=== PATIENT | female | born 1935 | race Caucasian/White ===

== ENCOUNTER 2016-10-01 05:12 | Inpatient (IN) | payer MEDICARE, BC ==
--- NOTE | ~2016-10-01 | PREOPHP ---
PreOp History and Physical [facility] [address] [place]. [address] NAME: LEEANN DILL : 37 STATUS : ADM IN PAT#: [id number] AGE: 81 ADM/REG DATE : 10/01/16 MR#: [id number] REPORT SERV DATE: 10/01/16 DICTATED BY: SHENG BARBER DATE: 10/01/16 REPORT STATUS : Draft TRANSCRIBED BY: MODL DATE: 10/01/16 CHIEF COMPLAINT: Back pain, leg pain, right greater than left. HISTORY OF PRESENT ILLNESS: This is an 81-year-old female whom I have taken care for the last 2 years. She has had a grade 1 spondylolisthesis at L3-4 and L4-5 as documented by x- ray. She has some instability at both levels, again as documented by dynamic flexion and extension x-rays. She has an MRI showing particularly significant foraminal stenosis on the right at L4-5, lesser amounts at L3-4 but nevertheless does have gross instability at L3-4 and some stenosis at L3-4. She is still very active, lives alone, still doing all of her own housekeeping, etc. She has failed all forms of conservative care and now brought to surgery for a right-sided L3-4, L4-5 hemilaminectomy, foraminotomy, facetectomy, transforaminal diskectomy, anterior interbody cage insertion, posterior lateral interbody fusion with local bone graft allograft. We will also use extra-small dosage of bone protein. Posterior percutaneous segmental instrumentation will complete the surgery. The patient has had a previous left-sided decompression, which should be noted. After identifying the patient in the preop holding area, all questions were answered. The patient voiced understanding of the risks, willingness to accept those, and requested to proceed. Please note, because of the complexity of surgery and the need to identify correct level of surgery intraoperatively as well as desire to carry out the safest most precise dissection, we feel an intraoperative navigation is mandatory. PAST MEDICAL HISTORY: Included a previous uterine and kidney cancer, both which have been treated and has been cured. She has hypertension, hypercholesterolemia. She has had a TIA and has some mild degree of osteoporosis as well as some chronic migraine cephalgia. PAST SURGICAL HISTORY: Carpal tunnel release, cholecystectomy, abdominal hysterectomy, L3-4, L4-5 hemilaminotomy with microdiskectomy, and left total hip arthroplasty. CURRENT MEDICATIONS: Atorvastatin, azelastine, benazepril, clobetasol, econazole, Neurontin, [place], pantoprazole, Symbicort, spironolactone. ALLERGIES: PENICILLIN. SOCIAL HISTORY: She is , lives alone. Smokes a few cigarettes per week, does not use any alcohol. FAMILY HISTORY: Her father had coronary artery disease. Her brother had coronary artery disease. Her mother of diabetes. REVIEW OF SYSTEMS: She denies chest pain, pressure, or shortness of breath. She ambulates independently. PHYSICAL EXAMINATION: VITAL SIGNS: 5 feet 3 inches, 195 pounds, BMI is 34.5. PreOp History and Physical [address] [address] NAME: LEEANN DILL : 36 STATUS : ADM IN [facility]#: [id number] AGE: 81 ADM/REG DATE : 10/01/16 MR#: [id number] REPORT SERV DATE: 10/01/16 DICTATED BY: SHENG BARBER DATE: 10/01/16 REPORT STATUS : Draft TRANSCRIBED BY: NABIL DATE: 10/01/16 GENERAL: She is alert, cooperative, well oriented. She ambulates independently. The truck is slightly flexed forward. HEENT: Exam is grossly normal. LUNGS: Clear to auscultation. HEART: Rate is regular and rhythmic. ABDOMEN: Soft with good bowel sounds. No peritoneal signs are noted. MUSCULOSKELETAL: Spine does have previous mild incision which is healed. There is no paraspinous muscle tenderness or spasm. There are no abnormal pain behaviors. Lisa signs are negative. Fabere signs are negative. Straight leg raising signs are negative. Femoral nerve stretch tests are negative. Motor strength is 5/5 in both lower extremities. Patella and Achilles reflex completely absent. No dermatomal sensory deficit found in either lower extremity. Toes are downgoing. No ankle clonus is found. No evidence of myelopathy noted. Orthopedically, she has no pain with movement of hips, knees, or ankles. There are some pulses in all four extremities. No abnormal skin lesions found. ASSESSMENT AND RECOMMENDATIONS: As listed above. MARIAH/NABIL Sheng Barber D.O. / [id number] CC: Eagle Ferguson M.D.
--- NOTE | ~2016-10-01 | OP ---
Record Of Operation [facility] [address] [place]. [address] NAME: LEEANN DILL : 37 STATUS : ADM IN PAT#: [id number] AGE: 81 ADM/REG DATE : 10/01/16 MR#: [id number] REPORT SERV DATE: 10/01/16 DICTATED BY: SHENG BARBER DATE: 10/01/16 REPORT STATUS : Draft TRANSCRIBED BY: MODL DATE: 10/01/16 DATE OF PROCEDURE: PREOPERATIVE DIAGNOSES: 1. Grade 1 spondylolisthesis, L3-4, L4-5. 2. Foraminal stenosis, L3-4, L4-5. 3. Herniated nucleus pulposus, right L4-5. POSTOPERATIVE DIAGNOSES: 1. Grade 1 spondylolisthesis, L3-4, L4-5. 2. Foraminal stenosis, L3-4, L4-5. 3. Herniated nucleus pulposus, right L4-5. PROCEDURE: Microscopic and navigation-assisted right L3-4, L4-5 hemilaminectomy, foraminotomy, facetectomy, transforaminal diskectomy, anterior interbody Capstone cage insertion, posterolateral interbody fusion with local bone graft and allograft. Posterior percutaneous closure instrumentation, L3 to L5. SURGEON: Sheng Barber D.O. CYBER POLICY AND [employer]ATEGY PLANNER: Davion Hutton. ANESTHESIA: General. ESTIMATED BLOOD LOSS: 100 mL. INDICATIONS FOR SURGERY: indications for surgery and risks have been explained. They are listed in the last office note as well as history and physical, see that for details. DESCRIPTION OF PROCEDURE: Antibiotic prophylaxis was given. Neurophysiology monitoring leads were inserted. The patient was brought to the operative suite. General anesthetic including endotracheal intubation was administered. A Nichols catheter was placed with a sterile technique. The patient was placed prone on a Patrick spine frame. Bony prominences were carefully padded. Thoracolumbar spine was scrubbed with Hibiclens solution. DuraPrep was painted. Sterile drapes were applied. A small stab wound was carried out over the left posterior-superior iliac spine. A percutaneous pin with navigational frame attached was inserted in PSIS. Intraoperative CT scan with O-arm was obtained. CT information was used to register the navigational system. With navigational assistance, I identified the L3-4, L4-5. Just lateral to the facet joint, a 5 cm skin incision was carried out. Initially, I used the inferior portion of the skin incision. I placed a blunt navigated probe through the fascia and muscle and docked over the L4-5 facet joint. Muscle dilator was inserted, followed by placement of a tubular retractor attached to an arm mount on the table. The microscope was sterilely draped and used throughout the remainder of the procedure. Record Of Operation [facility] [address] [place]. [address] NAME: LEEANN DILL : 37 STATUS : ADM IN PAT#: [id number] AGE: 81 ADM/REG DATE : 10/01/16 MR#: [id number] REPORT SERV DATE: 10/01/16 DICTATED BY: SHENG BARBER DATE: 10/01/16 REPORT STATUS : Draft TRANSCRIBED BY: NABIL DATE: 10/01/16 With navigational assistance, I identified the top of the pedicle of L5, the inferior pedicle of L4. I used a combination of a cutting bur, mehnaz burs, and 2 and 3 mm Kerrison rongeurs. I dissected from [id number], removing the entire superior articular process of L5 down to the top of the pedicle. I removed the pars interarticularis, the remaining lamina, and the inferior articular process of L4 that remained. I saw a large disk herniation in the paracentral and extending into the medial foramen, there was also ligamentum flavum hypertrophy, and some facet hypertrophy that was contributing to foraminal stenosis as well. I then carried out a transforaminal diskectomy with curettes, rongeurs, and disk morris. Intradiscal trial was carried out. The wound was irrigated. I then packed the interbody space with local bone graft and allograft. I used an extra-small dosage of bone protein. The cage was then inserted through the midportion of the interbody graft and against the anterior longitudinal ligament in the midline. Additional posterolateral interbody fusion was carried out afterwards. The retractor was removed. No bleeding was noted. I then moved to the top portion of the skin incision. I placed a blunt navigated probe through the fascia and muscle, and docked over the L3-4 facet joint, and repeated the same identical steps with a [id number] complete hemilaminectomy, foraminotomy, facetectomy, transforaminal diskectomy, anterior interbody cage insertion, posterolateral interbody fusion as well. I removed the retractor. I moved to the left side and carried out a 5 cm skin incision lateral to the facet joints on the left and matched that on the right. I used a percutaneous Voyager pedicle tap and screw [employer]. I tapped the pedicles of L3, L4, and L5 bilaterally. Polyaxial Voyager screws were inserted at all three levels at L3, L4 and L5 bilaterally. A contoured lordotic jaylon was then placed through the top portion of the screw extenders, reduced into the tulip of the pedicle screw. The set screws were inserted and tightened with a torque wrench providing rigid stability. Intraoperative CT scan with O-arm repeated showing good position of all implants. After screw extenders were removed, the wound was irrigated. The fascial opening was closed with interrupted #1 Vicryl suture. The subcutaneous tissue was closed with 2-0 Vicryl sutures, 2-0 vertical mattress nylon suture was used for skin closure. Sterile dressings were applied. The patient awakened, extubated, and taken to recovery room in satisfactory condition having tolerated procedure well. Sponge, needle, and instrument counts were correct. No intraoperative complications were noted.. MARIAH/NABIL Sheng Barber D.O. Record Of Operation [address] [address] NAME: DILLDENILEEANN Z : 37 STATUS : ADM [facility]#: [id number] AGE: 81 ADM/REG DATE : 10/01/16 MR#: [id number] REPORT SERV DATE: 10/01/16 DICTATED BY: SHENG BARBER DATE: 10/01/16 REPORT STATUS : Draft TRANSCRIBED BY: NABIL DATE: 10/01/16 / [id number] CC: Sheng Barber D.O.
--- NOTE | ~2016-10-01 | DS ---
Discharge Summary [facility] [address] [place]. [address] NAME: LEEANN DILL : 37 STATUS : DIS IN PAT#: [id number] AGE: 81 ADM/REG DATE : 10/01/16 MR#: [id number] REPORT SERV DATE: 10/15/16 DICTATED BY: SHENG BARBER DATE: 10/14/16 REPORT STATUS : Draft TRANSCRIBED BY: MODEva DATE: 10/14/16 Data Collection from hospitalization DISCHARGE DIAGNOSES: 1. Grade 1 spondylolisthesis, L3-4 and L4-5. 2. 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 3. Herniated nucleus pulposus, right L4-5. 4. Hypertension. 5. Hypercholesterolemia. 6. History of previous uterine and kidney cancer. 7. History of transient ischemic attack. 8. Osteoporosis. 9. Chronic migraine cephalgia. 10.Tobacco use. CONSULTATIONS: None. PROCEDURES PERFORMED: Microscopic navigation assisted right L3-4, L4-5 hemilaminectomy, foraminotomy, facetectomy, transforaminal diskectomy, anterior interbody Capstone cage insertion, posterolateral interbody fusion with local bone graft and allograft, posterior percutaneous closure instrumentation L3-L5 on 10/01/2016. PATHOLOGY: Bone and soft tissue, lumbar spine - bone fibrocartilage and skeletal muscle with nonspecific degenerative changes. No infection or neoplasm. MEDICATIONS: Tenormin 50 mg twice a day, Lipitor 20 mg at bedtime, Lotensin 20 mg every morning, vitamin D3 of 4000 units every day at bedtime, Neurontin 300 mg 4 times a day, Robaxin 500-750 mg every 8 hours as instructed, Aldactone 25 mg every morning, aspirin 81 mg every day at bedtime, Symbicort two puffs via inhaler twice a day as needed, Astelin 2 sprays nasally twice a day as needed, ProAir two puffs via inhaler every 4 hours as needed. CONDITION AT DISCHARGE: Stable. DISPOSITION: The patient was discharged to [facility] on a regular diet with activities as instructed. She will follow up with Carolyn Green or Vianey Powers on 10/21/2016. HOSPITAL COURSE: This is an 81-year-old female who I had taken care of over the past two years. She had a grade 1 spondylolisthesis at L3-4 and L4-5 as documented by x-rays. She had instability at both levels again documented by dynamic flexion and extension x-rays. An MRI shows a particularly significant foraminal stenosis on the right at L4-5 and to a lesser amount at L3-4, but nevertheless she did have gross instability at L3-4 and some stenosis at L3-4. She was still very active. She does all of her own housekeeping and was alone. She failed all forms of conservative care. Treatment options were discussed, and it was elected to proceed with surgical intervention. She was admitted to the hospital at this time for further evaluation and treatment. Upon admission, she was taken to the operating room where she underwent the above-mentioned Discharge Summary [place] [id number] [facility] [place]. [address] NAME: LEEANN DILL : 37 STATUS : DIS IN PAT#: [id number] AGE: 81 ADM/REG DATE : 10/01/16 MR#: [id number] REPORT SERV DATE: 10/15/16 DICTATED BY: SHENG BARBER DATE: 10/14/16 REPORT STATUS : Draft TRANSCRIBED BY: NAIBL DATE: 10/14/16 procedure. She tolerated this well, and there were no complications. On postop day #1, she was doing okay, she still had low back pain but no leg pain. On the 26, she did have some soreness. She was passing flatus, but had not had a bowel movement. She had no complaints of leg pain. Over the next couple of days, she continued to progress, she did have a bowel movement, she was making slow but steady progress. She was evaluated by Physical Therapy. Discharge planning was performed. On 10/07/2016, she continued to do well. Discharge instructions were given. Due to her improved and stable condition, she was discharged to [facility] with the above-stated instructions. Information collected by: Yolanda Bray I submit the above information as my discharge summary. AUSTYN/NABIL Sheng Barber D.O. / [id number] CC: Eagle Ferguson M.D. [facility]
[~2016-10-01 05:12] MED LIST: AMB10 PO; AMB5 PO; ASAB PO; ASTELIN NAS; ATEN50 PO; CLARIT10 PO; DARVOCET-N50 MG PO; FLONASE NAS; FOSAMAX70 MG PO; LEVAQUIN750 MG PO; LIPITOR20 PO; LORTAB10 PO; LOTE20 PO; LYRICA75 PO; METHOC500B PO; MOBIC15 MG PO; NEUR300 PO; NORCO1 TA1 PO; NORCO1 TAB PO; P10 PO; PROAIR HFA INH; PROAIRRESP INH; PROVENT20 INH; SPIRO25 PO; SYMBICORT 160/41 INH INH; TESSALON200 MG PO; VITAMIN D31000 UNIT PO
[2016-10-01 12:22] LABS: BASOPHILS 0.1 %; BASOPHILS ABSOLUTE 0.01 10/3/uL (0.0-0.16); EOSINOPHILS 1.3 %; EOSINOPHILS ABSOLUTE 0.11 10/3/uL (0.0-0.53); HEMATOCRIT 36.6 % (36.0-48.0); HEMOGLOBIN 12.2 g/dL (12.0-16.0); IMMATURE GRANULOCYTES 0.5 %; IMMATURE GRANULOCYTES ABSOLUTE 0.04 10/3/uL (0.0-0.11); LYMPHOCYTES 20.6 %; LYMPHOCYTES ABSOLUTE 1.68 10/3/uL (0.67-4.30); MANUAL DIFF NO %; MEAN CORPUS HGB CONC 33.3 g/dL (32.0-36.0); MEAN CORPUSCULAR HEMOGLOB 30.5 pg (26.0-34.0); MEAN CORPUSCULAR VOLUME 91.5 fL (80-100); MEAN PLATELET VOLUME 11.3 fL (9.2-13.0); MONOCYTES 1.6 %; MONOCYTES ABSOLUTE 0.13 10/3/uL (0.21-1.20); NEUTROPHILS 75.9 %; PLATELET COUNT 195 10/3/uL (150-400); RBC DISTRIBUTION WIDTH 13.9 % (12.0-16.0); WHITE BLOOD CELLS 8.2 10/3/uL (4.5-10.5)
[2016-10-01 12:34] LABS: CALCIUM, SERUM 8.6 MG/DL (8.5-10.4); CHLORIDE, SERUM 106 MMOL/L (96-112); CO2 (CARBON DIOXIDE) 26 MMOL/L (24-34); CREATININE 1.01 MG/DL (0.55-1.02); GFR AFRICAN AMERICAN 61 ML/MIN (>=60); GFR NON AFRICAN AMERICAN 53 ML/MIN (>=60); GLUCOSE, SERUM 124 MG/DL (60-99); POTASSIUM, SERUM 4.4 MMOL/L (3.5-5.3); SODIUM, SERUM 141 MMOL/L (135-148)
[2016-10-01 12:35] LABS: BUN (BLOOD UREA NITROGEN) 14 MG/DL (6-23)
[2016-10-02 05:46] LABS: BASOPHILS 0.1 %; BASOPHILS ABSOLUTE 0.01 10/3/uL (0.0-0.16); EOSINOPHILS 0.1 %; EOSINOPHILS ABSOLUTE 0.01 10/3/uL (0.0-0.53); HEMOGLOBIN 11.3 g/dL (12.0-16.0); IMMATURE GRANULOCYTES 0.3 %; IMMATURE GRANULOCYTES ABSOLUTE 0.03 10/3/uL (0.0-0.11); LYMPHOCYTES 9.2 %; LYMPHOCYTES ABSOLUTE 0.91 10/3/uL (0.67-4.30); MEAN CORPUS HGB CONC 34.5 g/dL (32.0-36.0); MEAN CORPUSCULAR VOLUME 92.9 fL (80-100); MEAN PLATELET VOLUME 11.5 fL (9.2-13.0); MONOCYTES 8.8 %; MONOCYTES ABSOLUTE 0.87 10/3/uL (0.21-1.20); NEUTROPHILS 81.5 %; NEUTROPHILS ABSOLUTE 8.11 10/3/uL (2.02-8.40); PLATELET COUNT 176 10/3/uL (150-400); RBC DISTRIBUTION WIDTH 13.6 % (12.0-16.0); RED CELL COUNT 3.53 10/6/uL (4.0-5.6); WHITE BLOOD CELLS 9.9 10/3/uL (4.5-10.5)
[2016-10-02 05:50] LABS: HEMATOCRIT 32.8 % (36.0-48.0); MANUAL DIFF NO %
[2016-10-02 05:54] LABS: CALCIUM, SERUM 8.2 MG/DL (8.5-10.4); CHLORIDE, SERUM 104 MMOL/L (96-112); CO2 (CARBON DIOXIDE) 26 MMOL/L (24-34); CREATININE 0.77 MG/DL (0.55-1.02); GFR AFRICAN AMERICAN 85 ML/MIN (>=60); GFR NON AFRICAN AMERICAN 73 ML/MIN (>=60); POTASSIUM, SERUM 4.1 MMOL/L (3.5-5.3); SODIUM, SERUM 139 MMOL/L (135-148)
[2016-10-02 05:58] LABS: BUN (BLOOD UREA NITROGEN) 10 MG/DL (6-23); GLUCOSE, SERUM 171 MG/DL (60-99)
== END 2016-10-07 16:57 | DRG 460 ==
LOC: SDC/OF 05:12 → PACU 12:01 → 3SO 13:39
PROVIDERS: Orthopaedic Surgery Orthopaedic Surgery of the Spine
PROC: 0SG10AJ Fusion of 2 or more Lumbar Vertebral Joints with Interbody Fusion Device, Posterior Approach, Anterior Column, Open Approach (ICD-10-PCS; principal; 2016-10-01 07:00)
PROC: 0ST20ZZ Resection of Lumbar Vertebral Disc, Open Approach (ICD-10-PCS; 2016-10-01 07:00)
PROC: 4A11X4G Monitoring of Peripheral Nervous Electrical Activity, Intraoperative, External Approach (ICD-10-PCS; 2016-10-01 07:00)
DX: M51.36 Other intervertebral disc degeneration, lumbar region (principal); J44.9 Chronic obstructive pulmonary disease, unspecified; F17.210 Nicotine dependence, cigarettes, uncomplicated; F11.90 Opioid use, unspecified, uncomplicated; I10 Essential (primary) hypertension
CPT/HCPCS: 36415; 71010; 80048; 82962; 85014; 85018; 85025; 86850; 86900; 86901; 87641; 88304; 88311; 93005; 97116-GP; 97161-GP; 97530-GP; A9270-GY; C1713; G8978-CK-GP; G8979-CH-GP; J1580; J1644; J2250; J2405; J2710; J3010; J3370